=== PATIENT | female | born 1985 | race Caucasian/White ===

== ENCOUNTER 2018-03-18 05:34 | Outpatient (CLI) | payer MEDICAID ==
[~2018-03-18] VITALS: Ht 152.4 cm; Wt 108.9 kg
[~2018-03-18 05:34] MED LIST: ALMG355B PO; AMOX500C2 PO; FAMO20TA5 PO; FURO-125 PO; HYDR-1231 PO; HYDR-34 PO; HYDR-3714 PO; METO-351 PO; OXYC-12 PO; PROM12.59 PO
[2018-03-18] MEDS ORDERED: METO-387 PO (14:04)
[2018-03-18] MEDS ORDERED: LEVO125T6 PO (14:04)
== END 2018-03-18 14:29 ==
LOC: PREOP 05:34
PROVIDERS: ATTEND Obstetrics & Gynecology
DX: Z01.818 Encounter for other preprocedural examination (principal); F79 Unspecified intellectual disabilities

== ENCOUNTER 2018-03-19 07:28 | Day surgery (SDC) | payer MEDICAID ==
[~2018-03-19] VITALS: Ht 152.4 cm; Wt 108.9 kg
[~2018-03-19 07:28] MED LIST changes: +LEVO125T6 PO; +METO-387 PO
[2018-03-19 07:32] VITALS: BP 142/92
--- OUTSIDE RECORDS SUMMARY | 2018-03-19 07:32 | XMS REPORT ---
Author Author ISA AMBRIZ Organization [employer] Address Unknown Phone Unavailable Care Team Providers Care Sleeve Separator Name Role Phone ISA AMBRIZ CP Unavailable Allergies No Known Allergies Problems Problem Type Condition Code Onset Dates Condition Status Problem Mild intellectual disabilities F70 Active Assessment Anxiety disorder, unspecified F41.9 Active Problem Anxiety disorder, unspecified F41.9 Active Assessment Mild intellectual disabilities F70 Active Medications No Known Medications Procedures Procedure Coding System Code Date Psych diagnostic evaluation, new patient CPT-4 88287 Sep 10, 2016 Results No Known Results Summary Purpose [employer] Submission
--- OUTSIDE RECORDS SUMMARY | 2018-03-19 07:32 | XMS REPORT ---
Author Author ISA AMBRIZ Organization [employer] Address Unknown Phone Unavailable Care Team Providers Care Costume Mistress Name Role Phone ISA AMBRIZ CP Unavailable Allergies No Known Allergies Problems Problem Type Condition Code Onset Dates Condition Status Problem Anxiety disorder, unspecified F41.9 Active Problem Mild intellectual disabilities F70 Active Problem Down syndrome, unspecified Q90.9 Active Assessment Mild intellectual disabilities F70 Active Assessment Anxiety disorder, unspecified F41.9 Active Assessment Down syndrome, unspecified Q90.9 Active Medications No Known Medications Procedures Procedure Coding System Code Date Psychotherapy, patient &/family, 45 minutes, established patient CPT-4 67146 Oct 18, 2016 Results No Known Results Summary Purpose [employer] Submission
--- OUTSIDE RECORDS SUMMARY | 2018-03-19 07:32 | XMS REPORT ---
Author Author SIA AMBRIZ Organization [employer] Address Unknown Phone Unavailable Care Team Providers Care Computer Hardware Designer Name Role Phone ISA AMBRIZ CP Unavailable Allergies No Known Allergies Problems Problem Type Condition Code Onset Dates Condition Status Problem Anxiety disorder, unspecified F41.9 Active Problem Mild intellectual disabilities F70 Active Problem Down syndrome, unspecified Q90.9 Active Assessment Down syndrome, unspecified Q90.9 Active Assessment Anxiety disorder, unspecified F41.9 Active Assessment Mild intellectual disabilities F70 Active Medications No Known Medications Procedures Procedure Coding System Code Date Psychotherapy, patient &/family, 45 minutes, established patient CPT-4 38509 Sep 24, 2016 Results No Known Results Summary Purpose [employer] Submission
--- OUTSIDE RECORDS SUMMARY | 2018-03-19 07:32 | XMS REPORT ---
Author Author ISA AMBRIZ Organization [facility] Address [address] [place] [address] Care Team Providers Care Firer Watertender Name Role Phone ISA AMBRIZ Unavailable PROBLEMS Type Condition ICD9-CM Code [id number] Code Onset Dates Condition Status SNOMED Code Problem Down syndrome, unspecified Q90.9 Active 49798510 Problem Anxiety disorder, unspecified F41.9 Active [id number] Problem Mild intellectual disabilities F70 Active [id number] ALLERGIES Unknown Allergies SOCIAL HISTORY No smoking Hx information available PLAN OF CARE Activity Details Follow Up no new appointment made Reason: VITAL SIGNS MEDICATIONS Unknown Medications RESULTS No Results PROCEDURES Procedure Date Ordered Related Diagnosis Body Site Psychotherapy, patient &/family, 45 minutes, established patient Oct 30, 2016 IMMUNIZATIONS No Known Immunizations
--- OUTSIDE RECORDS SUMMARY | 2018-03-19 07:33 | XMS REPORT | Continuity of Care Document ---
Author Author [facility] Organization [facility] Address Unknown Phone Unavailable Allergies Active Description Code Type Severity Reaction Onset Reported/Identified Relationship to Patient Clinical Status Yes codeine [id number] Drug Allergy Unknown CAUSES SEVERE S 01/31/2015 Yes diazepam [id number] Drug Allergy Unknown MAKES CRAZY 01/31/2015 Yes sulfamethoxazole [id number] Drug Allergy Unknown RASH, WELTS, RE 2014 Yes trimethoprim [id number] Drug Allergy Unknown RASH, WELTS, RE 01/31/2015 Yes aspirin [id number] Drug Allergy Unknown INSTRUCTED TO N 08/03/2015 Yes codeine [id number] Drug Allergy Moderate CAUSES SEVERE S 08/09/2015 Medications There is no data. Problems Date Dx Coded Attending Type Code Diagnosis Diagnosed By 02/06/2015 Ot 327.23 02/06/2015 Ot 401.9 02/06/2015 Ot 574.10 02/06/2015 Ot 758.0 02/28/2015 Ot 722.4 02/28/2015 Ot 758.0 06/22/2015 Ot 745.5 06/22/2015 Ot 747.0 06/22/2015 Ot V15.1 06/22/2015 Ot V72.84 06/22/2015 Ot 278.01 06/22/2015 Ot 428.0 06/22/2015 Ot 429.3 06/22/2015 Ot 786.50 06/22/2015 Ot 722.4 06/22/2015 Ot 758.0 06/23/2015 ADELAIDA SIMS DO Ot 844.9 SPRAIN OF KNEE LEG NOS 06/23/2015 ADELAIDA SIMS DO Ot 959.7 LOWER LEG INJURY NOS 06/23/2015 ADELAIDA SIMS DO Ot E000.8 OTHER EXTERNAL CAUSE STATUS 06/23/2015 ADELAIDA SIMS DO Ot E849.0 ACCIDENT IN HOME 06/23/2015 ADELAIDA SIMS DO Ot E927.0 OVEREXERTION FROM SUDDEN STRENUOUS MOVEM 06/23/2015 Ot 745.5 06/23/2015 Ot 747.0 06/23/2015 Ot V15.1 06/23/2015 Ot V72.84 06/23/2015 Ot 278.01 06/23/2015 Ot 428.0 06/23/2015 Ot 429.3 06/23/2015 Ot 786.50 06/23/2015 Ot 722.4 06/23/2015 Ot 758.0 07/18/2015 RADHA JUDGE, KEMI L Ot 717.89 07/18/2015 RADHA JUDGE, KEMI L Ot 719.06 07/18/2015 RADHA JUDGE, KEMI L Ot 719.46 07/18/2015 DENICE JUDGE, SAMUEL Wall Ot V72.5 08/09/2015 ELICIA JUDGE, SHANE P Ot 733.92 08/09/2015 ELICIA JUDGE, SHANE P Ot 758.0 08/09/2015 ELICIA JUDGE, SHANE P Ot 836.0 08/09/2015 ELICIA JUDGE, SHANE P Ot 845.09 08/09/2015 ELICIA JUDGE, SHANE P Ot E000.8 08/09/2015 EILCIA JUDGE, SHANE P Ot E928.9 08/09/2015 ELICIA JUDGE, SHANE P Ot V57.1 08/09/2015 ELICIA JUDGE, SHANE P Ot V74.8 06/05/2016 INEZ JAY MACHINE QUILT STUFFER Ot J02.9 ACUTE PHARYNGITIS, UNSPECIFIED 06/05/2016 INEZ JAY MACHINE QUILT STUFFER Ot Q90.9 DOWN SYNDROME, UNSPECIFIED 06/07/2016 INEZ JAY MACHINE QUILT STUFFER Ot J02.9 ACUTE PHARYNGITIS, UNSPECIFIED 06/07/2016 INEZ JAY MACHINE QUILT STUFFER Ot Q90.9 DOWN SYNDROME, UNSPECIFIED 08/29/2016 RADHA JUDGE, KEMI L Ot M25.562 PAIN IN LEFT KNEE 09/04/2016 RADHA JUDGE, KEMI Short Ot M25.562 PAIN IN LEFT KNEE 09/12/2016 ELICIA JUDGE, SHANE P Ot Z01.818 ENCOUNTER FOR OTHER PREPROCEDURAL EXAMIN 09/12/2016 ELICIA JUDGE, SHANE Bales Ot Z11.2 ENCOUNTER FOR SCREENING FOR OTHER BACTER 09/12/2016 KEMI GARCIA MD Ot M25.562 PAIN IN LEFT KNEE 09/18/2016 SHANE RUBI MD Ot G47.30 SLEEP APNEA, UNSPECIFIED 09/18/2016 SHANE RUBI MD Ot I10 ESSENTIAL (PRIMARY) HYPERTENSION 09/18/2016 SHANE RUBI MD Ot Q90.9 DOWN SYNDROME, UNSPECIFIED 09/18/2016 SHANE RUBI MD Ot T84.127A DISPLACEMENT OF INT FIX OF BONE OF LEFT 09/19/2016 SHANE RUBI MD, Ot G47.30 SLEEP APNEA, UNSPECIFIED 09/19/2016 SHANE RUBI MD Ot I10 ESSENTIAL (PRIMARY) HYPERTENSION 09/19/2016 SHANE RUBI MD Ot Q90.9 DOWN SYNDROME, UNSPECIFIED 09/19/2016 SHANE RUBI MD Ot T84.127A DISPLACEMENT OF INT FIX OF BONE OF LEFT Procedures There is no data. Results Test Result Range Methicillin resistant Staphylococcus aureus (MRSA) screening culture - 10:25 Methicillin resistant Staphylococcus aureus (MRSA) screening culture NEG NRG Urine beta human chorionic gonadotropin (hCG) measurement - 09/18/16 09:35 Urine beta human chorionic gonadotropin (hCG) measurement NEGATIVE NEGATIVE Encounters ACCT No. Visit Date/Time Discharge Status Pt. Type Provider Facility Loc./Unit Complaint [id number] 09/18/2016 09:24:00 09/18/2016 13:15:00 DIS Outpatient SHANE RUBI MD [facility] SDC LEFT KNEE SYMPTOMATIC HARDWARE [id number] 09/12/2016 09:58:00 09/12/2016 10:35:00 DIS Outpatient SHANE RUBI MD [facility] PREOP LEFT KNEE SYMPTOMATIC HARDWARE [id number] 08/29/2016 11:05:00 08/29/2016 23:59:59 CLS Outpatient KEMI GARCIA MD [facility] RAD LT KNEE PAIN/ SWELLING [id number] 06/05/2016 15:21:00 06/05/2016 17:18:00 DIS Emergency INEZ JAY APRN [facility] ER [id number] 08/09/2015 08:54:00 08/09/2015 15:45:00 DIS Outpatient SHANE RUBI MD [facility] SDC [id number] 08/03/2015 10:17:00 08/03/2015 23:59:59 CLS Outpatient SHANE RUBI MD [facility] PREOP [id number] 07/03/2015 17:26:00 07/03/2015 23:59:59 CLS Outpatient DENICE JUDGE, SAMUEL Wall [facility] RAD [id number] 07/03/2015 16:39:00 07/03/2015 23:59:59 CLS Outpatient RADHA JUDGE, KEMI Short [facility] RAD [id number] 06/22/2015 22:33:00 06/23/2015 01:20:00 DIS Emergency ADELAIDA SIMS DO [facility] ER [id number] 02/06/2015 11:23:00 Document Registration [id number] 01/31/2015 14:26:00 Document Registration [id number] 01/31/2015 11:40:00 Document Registration [id number] 01/31/2015 11:35:00 Document Registration [id number] 07/23/2010 11:10:00 Document Registration [email or web address] 08/10/2015 04:34:43 ACT Document Registration
[2018-03-19 08:07] LABS: HEMATOCRIT 48 % (35-52); HEMOGLOBIN 15.7 G/DL (11.5-16.0); MEAN CORPUSCULAR HEMOGLOBIN 30 PG (25-34); MEAN CORPUSCULAR HGB CONC 33 G/DL (32-36); MEAN CORPUSCULAR VOLUME 91 FL (80-99); MEAN PLATELET VOLUME 9.6 FL (7.4-10.4); PLATELET COUNT 197 10^3/uL (130-400); RED BLOOD COUNT 5.24 10^6/uL (4.35-5.85); RED CELL DISTRIBUTION WIDTH 13.7 % (10.0-14.5); WHITE BLOOD COUNT 4.4 10^3/uL (4.3-11.0)
[2018-03-19 08:08] LABS: BASOPHILS # (AUTO) 0.1 10^3/uL (0.0-0.1); BASOPHILS % (AUTO) 3 % (0-10); EOSINOPHILS # (AUTO) 0.2 10^3/uL (0.0-0.3); EOSINOPHILS % (AUTO) 3 % (0-10); LYMPHOCYTES # (AUTO) 1.1 X 10^3 (1.0-4.0); LYMPHOCYTES % (AUTO) 26 % (12-44); MONOCYTES # (AUTO) 0.5 X 10^3 (0.0-1.0); MONOCYTES % (AUTO) 10 % (0-12); NEUTROPHILS # (AUTO) 2.6 X 10^3 (1.8-7.8); NEUTROPHILS % (AUTO) 58 % (42-75)
[2018-03-19] MEDS ORDERED: fentaNYL INJECTION 100 MCG/2 ML AMP ONE (08:55)
[2018-03-19] MEDS ORDERED: MIDAZOLAM 2 MG/2 ML (VERSED) VIAL ONE (08:55)
[2018-03-19] MEDS ORDERED: ONDANSETRON 4 MG/2 ML (SDV) Z0FRAN ONE (08:55)
[2018-03-19] MEDS ORDERED: proPOfol 200 MG/20 ML (DIPRIVAN) VIAL IV ONE (08:55)
[2018-03-19] MEDS ORDERED: LIDOCAINE PF 2% 5 ML (XYLOCAINE) VIAL ONE (08:55)
[2018-03-19] MEDS ORDERED: D5 LR IV SOLUTION 1,000 ML IV SCH (09:27)
--- NOTE | 2018-03-19 09:27 | Progress Note-Pre Operative ---
Pre-Operative Progress Note H&P Reviewed The H&P was reviewed, patient examined and no changes noted. Date Seen by Provider: Mar 19, 2018 Time Seen by Provider: 09:10 Date H&P Reviewed: Mar 19, 2018 Time H&P Reviewed: 08:55 Pre-Operative Diagnosis: EUA due to MR, Hx of Menorrhagia SHANE MCFARLANE DO Mar 19, 2018 9:27 am
[2018-03-19] MEDS ORDERED: KETOROLAC 30 MG/ML VIAL IVP ONE (09:30)
[2018-03-19] MEDS ORDERED: ONDANSETRON 4 MG/2 ML (SDV) Z0FRAN IVP PRN ×2 (09:30→10:15)
--- NOTE | 2018-03-19 09:30 | Discharge Inst-Women's Service ---
Discharge Inst-Women's Serv Consults/Follow Up Additional Follow Up: Yes Orders/Referrals 6-8 weeks Activity Activity: Activity as Tolerated Diet Discharge Diet: No Restrictions Symptoms to Report to : Bleeding Excessive, Pain Increased, Fever Over 101 Degrees F, Vaginal Bleeding Increase For Any Problems or Questions: Contact Your Physician SHANE MCFARLANE DO Mar 19, 2018 09:30
[2018-03-19] MEDS ORDERED: LACTATED RINGERS 1,000 ML IV SCH (09:45)
[2018-03-19] MEDS ORDERED: morphine INJ 10 MG/ML 1ML (SYR OR VIAL) IVP PRN (10:15)
[2018-03-19 10:30] VITALS: BP 113/74
[2018-03-19 11:00] VITALS: BP 115/66
[2018-03-19 11:30] VITALS: BP 131/80
--- NOTE | 2018-03-19 12:50 | Anesthesia-General Post-Op ---
General Patient Condition Mental Status/LOC: Same as Preop Cardiovascular: Satisfactory Nausea/Vomiting: Absent Respiratory: Satisfactory Pain: Controlled Complications: Absent Post Op Complications Complications None Follow Up Care/Instructions Patient Instructions None needed. Anesthesia/Patient Condition Patient Condition Patient is doing well, no complaints, stable vital signs, no apparent adverse anesthesia problems. No complications reported per nursing. JACKI JACKSON CRNA Mar 19, 2018 12:49
--- NOTE | 2018-03-19 17:58 | Progress Note-Post Operative ---
Post-Operative Progess Note Surgeon (s)/Technical Expert (s) Surgeon SHANE MCFARLANE DO Bad table Pre-Operative Diagnosis EUA due to MR, Hx of Menorrhagia Post-Operative Diagnosis same Procedure & Operative Findings Date of Procedure 03/19/18 Procedure Performed/Findings Patient was taken the operating room where LMA anesthesia was found to be adequate. She's placed in dorsal lithotomy position where I perform a pelvic examination. Grossly normal external female genitalia. Speculum is inserted to the patient's vagina and the cervix is visualized. Pap smear cytology is collected. IUD is removed using a ring forcep. The uterine cavity is then sounded to 7 cm and a new Mirena is placed at a depth of 7 cm. The IUD strings are trimmed approximately 3 cm outside of the external cervical os. There was no active bleeding noted after this was done. The patient tolerated this procedure well and was taken to the recovery area in stable condition. Bimanual examination was performed no adnexal fullness or masses were appreciated and normal size uterus on exam however exam was somewhat limited due to patient's body habitus. Anesthesia Type LMA Estimated Blood Loss Estimated blood loss (mL): 0 Specimens/Packing Specimens Removed IUD SHANE MCFARLANE DO Mar 19, 2018 17:58
== END 2018-03-19 11:40 | disposition home or self-care (01) ==
LOC: SDC 07:28
PROVIDERS: ATTEND Obstetrics & Gynecology
DX: N92.0 Excessive and frequent menstruation with regular cycle (principal); F71 Moderate intellectual disabilities; E03.9 Hypothyroidism, unspecified; I11.0 Hypertensive heart disease with heart failure; I10 Essential (primary) hypertension; I08.1 Rheumatic disorders of both mitral and tricuspid valves; E78.5 Hyperlipidemia, unspecified; G47.33 Obstructive sleep apnea (adult) (pediatric); E66.01 Morbid (severe) obesity due to excess calories; Z68.42 Body mass index [BMI] 45.0-49.9, adult; Z79.899 Other long term (current) drug therapy
CPT/HCPCS: 36415; 84703; 85025; 86850; 86900; 86901; 87081; 94664

== ENCOUNTER → 2021-04-24 | Outpatient (CLI) | payer MEDICAID ==
[~2021-04-24] MED LIST changes: -METO-387 PO; +MTP25TSR PO
== END ==
LOC: CARD 13:58
PROVIDERS: ATTEND Internal Medicine Cardiovascular Disease
DX: I35.1 Nonrheumatic aortic (valve) insufficiency (principal); I10 Essential (primary) hypertension; I25.10 Atherosclerotic heart disease of native coronary artery without angina pectoris
CPT/HCPCS: 93306

== ENCOUNTER → 2021-04-24 | Outpatient (CLI) | payer MEDICAID ==
[~2021-04-24] MED LIST changes: +RT-ALBUTEROL SULF 2.5 MG/3 ML PRE-MIX VIAL INH ONE
--- NOTE | 2021-04-24 18:24 | Diagnostic Imaging Report ---
EXAMINATION: Chest 2 view HISTORY: Shortness of breath COMPARISON: 06/05/2016 FINDINGS: There is right middle lobe airspace opacity. No pleural effusion or pneumothorax. No edema. IMPRESSION: 1. Right middle lobe airspace opacity which may reflect atelectasis or pneumonia depending on patient symptoms. Dictated by: Dictated on workstation # [id number]
== END ==
LOC: RT 13:57
PROVIDERS: ATTEND Nurse Practitioner Family
DX: R91.8 Other nonspecific abnormal finding of lung field (principal); R06.02 Shortness of breath; R06.00 Dyspnea, unspecified
CPT/HCPCS: 71046; 94060; 94726; 94729

== ENCOUNTER → 2021-05-22 | Outpatient (CLI) | payer MEDICAID ==
[~2021-05-22] MED LIST changes: -RT-ALBUTEROL SULF 2.5 MG/3 ML PRE-MIX VIAL INH ONE
== END ==
LOC: LABNPT 06:48
PROVIDERS: ATTEND Nurse Practitioner Family
DX: Z53.9 Procedure and treatment not carried out, unspecified reason (principal)